=== PATIENT | female | born 2000 | race Caucasian/White ===

== ENCOUNTER 2024-11-26 10:48 | Emergency (ER) | payer MEDICAID, SELFPAY ==
[2024-11-26 11:12] VITALS: BP 112/74; PULSE 61; RESP 18; TEMP 36.7; O2SAT 99
--- NOTE | 2024-11-26 11:23 | ED_ITS ---
HPI - URI/Sore Throat General Chief Complaint: Upper Respiratory Infection Stated Complaint: SORE THROAT History of Present Illness HPI Narrative: 24-year-old female transitioning to male presented for complaint of nausea vomiting and diarrhea For about 1 week. Started with sore throat cough yesterday. Endorses exposure to norovirus. Says the nausea, vomiting, diarrhea are intermittent. Denies Abdominal pain, shortness of breath, wheezing or lethargy. Taking ibuprofen.. Related Data Home Medications ?Medication ?Instructions ?Recorded ?Confirmed ?Last Taken ?Type testosterone cypionate 200 mg/mL mg 11/26/24 Unknown History intramuscular oil Allergies Allergy/AdvReac Type Severity Reaction Status Date / Time No Known Allergies Allergy Verified 11/26/24 11:15 Review of Systems Review of Systems: CONSTITUTIONAL: Denies body aches, fever, chills, or sweats. EYES: Denies visual changes, redness, or discharge. ENT: reports sore throat Denies rhinorrhea, congestion, or otalgia. CARDIOVASCULAR: Denies chest pain, palpitations, or edema. RESPIRATORY: Denies dyspnea. GASTROINTESTINAL: Denies abdominal pain, Reports nausea, vomiting, diarrhea. SKIN: Denies rash, itching, or wounds. MUSCULOSKELETAL: Denies back pain, joint pain, or myalgia. NEUROLOGIC: Denies headache PMFSH Past Medical History Medical History Transgender Exam Narrative: GENERAL: well-appearing, no acute distress. EYES: conjunctivae clear ENT: Mucous membranes moist. TM pearly fontenot with normal light reflex bilaterall y; no tragal tenderness. Oropharynx erythematous without lesions. Tonsils not enlarged and without exudate. No drooling, no hoarseness, no trismus, uvula midline. No tripod positioning, hot potato voice, or soft palate swelling. NECK: Supple. No lymphadenopathy CHEST: Clear to auscultation, breath sounds equal. No respiratory distress, speaks in full sentences. HEART: Regular rate and rhythm. No murmur heard. ABD: soft, flat mildly tender to RUQ, positive Bowel sounds. NEURO: Alert and oriented x3. Course Course Emergency Course: Patient is aware of diagnosis, understands and agrees to treatment plan. Anticipatory guidance given. Patient agrees to follow-up as directed and is aw are of reasons to seek care at the emergency department. Portions of this record may have been created with voice recognition software Level of Care: Express Care Visit Vital Signs Vital signs: Vital Signs Temperature 98.0 F 11/26/24 11:12 Pulse Rate 61 11/26/24 11:12 Respiratory Rate 18 11/26/24 11:12 Blood Pressure 112/74 11/26/24 11:12 Pulse Oximetry 99 11/26/24 11:12 Oxygen Delivery Room Air 11/26/24 11:12 Temperature 98.0 F 11/26/24 11:12 Pulse Rate 61 11/26/24 11:12 Respiratory Rate 18 11/26/24 11:12 Blood Pressure 112/74 11/26/24 11:12 Pulse Oximetry 99 11/26/24 11:12 Oxygen Delivery Room Air 11/26/24 11:12 MDM - URI/Sore Throat MDM Narrative Medical decision making narrative: neg strep result reviewed with pt. Advise supportive treatments for n/v/d Patient is appropriate for outpatient treatment and follow-up. Differential Diagnosis Differential diagnosis: Likely upper respiratory infection, viral infection and pharyngitis Lab Data Labs: Lab Results 11/26/24 Range/Units 11:41 POC Grp A Strep Screen Negative (Negative) Discharge Plan Discharge Clinical Impression: Viral infection Patient Disposition: Home, Self-Care Condition: Stable Instructions: Viral Syndrome (ED) Additional Instructions: Rapid strep swab was negative today You will be notified in a few days if the culture comes back positive for strep, and appropriate antibiotics will be called in at that time. if symptoms are due to a viral illness, it is not treated with antibiotics. Viral symptoms can be present for up to 10-14 days. Tylenol every 8 hours as needed for pain/fever Soft foods, cool liquids, warm tea. Gargle with warm saltwater twice a day. Chloraseptic spray and throat lozenges. Rest and stay hydrated. Stay hydrated. Take small sips of fluid containing electrolytes frequently. Clear liquids (broth, jello, tea, sprite, pedialyte), [place] foods (bananas, rice, applesauce, toast, crackers) Avoid fatty, greasy, fried or spicy foods. Limit dairy until symptoms are improved. [id number] Imodium as needed for diarrhea You should go to the hospital if you experience persistent nausea and vomiting that does not resolve and does not allow you to tolerate any food or fluids, fevers, increasing abdominal pain, persistent diarrhea, dizziness, fainting, or for any other concerns. Follow up with primary care provider in 3 days. Patient Language: Mont[place]atian Prescriptions: New ondansetron 4 mg tablet,disintegrating 4 mg PO Q8H PRN (Reason: nausea and vomiting) Qty: 20 0RF No Action testosterone cypionate 200 mg/mL oil Follow-up/Referrals: PHYSICIAN,ESTIMATOR PROJECT MANAGER [Primary Care Provider] - Time of Disposition: 11:54
[2024-11-26 11:44] LABS: EDSTREPNEGPOS1 Negative (Negative)
== END 2024-11-26 12:04 | disposition home or self-care (01) ==
PROVIDERS: Emergency Provider Nurse Practitioner Family
DX: B34.9 Viral infection, unspecified (principal)
CPT/HCPCS: 87081; 87880; 99213; G0463

== ENCOUNTER 2024-12-15 12:52 | Emergency (ER) | payer MEDICAID, SELFPAY ==
[2024-12-15 13:05] VITALS: BP 102/74; PULSE 71; RESP 16; TEMP 36.3; O2SAT 100
--- NOTE | 2024-12-15 13:15 | ED_ITS ---
HPI - URI/Sore Throat General Chief Complaint: Upper Respiratory Infection Stated Complaint: SORE THROAT/COUGH/STREP EXPSOURE Time Seen by Provider: 12/15/24 12:53 Source: patient and RN notes reviewed Mode of arrival: ambulatory Limitations: no limitations History of Present Illness HPI Narrative: Patient presents today with a 2 day history of sore throat, cough, congestion, rhinorrhea. Denies fever or any additional symptoms. Friend has tested positive for strep throat. Currently rates his pain 5/10 and has been taking Tylenol and ibuprofen with some relief. Patient is transgender and goes by Claudio Related Data Home Medications ?Medication ?Instructions ?Recorded ?Confirmed ?Last Taken ?Type testosterone cypionate 200 mg/mL mg 11/26/24 Unknown History intramuscular oil Allergies Allergy/AdvReac Type Severity Reaction Status Date / Time No Known Allergies Allergy Verified 12/15/24 13:18 Review of Systems Review of Systems: CONSTITUTIONAL: Denies body aches, fever, chills, or sweats. EYES: Denies visual changes, redness, or discharge. ENT: + rhinorrhea, congestion, sore CARDIOVASCULAR: Denies chest pain, palpitations, or edema. RESPIRATORY: Denies dyspnea.+ cough GASTROINTESTINAL: Denies abdominal pain, nausea, vomiting, or diarrhea. GENITOURINARY: Denies dysuria or hematuria. SKIN: Denies rash, itching, or wounds. MUSCULOSKELETAL: Denies back pain, joint pain, or myalgia. NEUROLOGIC: Denies headache, numbness, tingling, or weakness. PSYCH: Denies depression or anxiety. [facility] Past Medical History Medical History Transgender Comments At time of signature, I have reviewed and agree with nursing past medical, surgical, social and family history unless otherwise noted. Please see nursing chart for further information. There is no relevant family history pertinent to the presenting complaint Exam Narrative: GENERAL: Well-appearing, well-nourished, and in no acute distress. HEAD: Normocephalic, atraumatic. EYES: EOMI. No redness or drainage. Conjunctivae normal. ENT: Mucous membranes pink and moist. Nares mild congestion with rhinorrhea. TMs normal bilaterally. Throat mildly erythematous without edema or exudate. Uvula midline. NECK: Normal AROM. Supple. No lymphadenopathy. CHEST: No respiratory distress. Clear to auscultation. HEART: Regular rate and rhythm. No murmur appreciated. EXTREMITIES: Normal range of motion. No edema. SKIN: Warm, dry, no rash. Capillary refill normal. Normal skin turgor. NEURO: No focal deficits. Alert and oriented x3. Gait steady. PSYCH: Normal affect. No signs of depression or anxiety. Course Course Level of Care: Express Care Visit Vital Signs Vital signs: Vital Signs Temperature 97.4 F L 12/15/24 13:05 Pulse Rate 71 12/15/24 13:05 Respiratory Rate 16 12/15/24 13:05 Blood Pressure 102/74 12/15/24 13:05 Pulse Oximetry 100 12/15/24 13:05 Temperature 97.4 F L 12/15/24 13:05 Pulse Rate 71 12/15/24 13:05 Respiratory Rate 16 12/15/24 13:05 Blood Pressure 102/74 12/15/24 13:05 Pulse Oximetry 100 12/15/24 13:05 Reviewed MDM - URI/Sore Throat MDM Narrative Medical decision making narrative: Rapid strep negative. Symptoms likely viral in etiology. Discussed [id number] medication use and duration of illness. No prescription medic ations indicated at this time. Anticipatory guidance given. Differential Diagnosis Differential diagnosis: Likely upper respiratory infection, viral infection, pharyngitis and other (Strep throat) Lab Data Attestation: I reviewed the patient's lab results. Lab results narrative: Rapid strep negative Critical Care Time Critical Care Time Critical Care Time: No Discharge Plan Discharge Clinical Impression: Upper respiratory infection Qualifiers: URI type: unspecified URI Qualified Code(s): J06.9 - Acute upper respiratory infection, unspecified Patient Disposition: Home, Self-Care Condition: Stable Instructions: Upper Respiratory Infection (DC) Additional Instructions: Your rapid strep swab was negative today at [facility]. You will be notified in a few days if the culture comes back positive for strep, and appropriate antibiotics will be called in for you at that time. Your symptoms are likely due to a viral illness, which is not treated with antibiotics. Viral symptoms can be present for up to 7-10 days. Take Tylenol or ibuprofen for fever or pain. Rest and stay hydrated. Follow up with your PCP in 7 days if symptoms are not improving. Go to the ER immediately if you have any difficulty breathing or swallowing. Patient Language: Italian Prescriptions: No Action testosterone cypionate 200 mg/mL oil ondansetron 4 mg tablet,disintegrating 4 mg PO Q8H PRN (Reason: nausea and vomiting) Qty: 20 0RF Follow-up/Referrals: PHYSICIAN,PRODUCT SAFETY OFFICER [Primary Care Provider] - Time of Disposition: 13:19
[2024-12-15 13:22] LABS: EDSTREPNEGPOS1 Negative (Negative)
== END 2024-12-15 13:22 | disposition home or self-care (01) ==
PROVIDERS: Emergency Provider Nurse Practitioner
DX: J06.9 Acute upper respiratory infection, unspecified (principal); F64.0 Transsexualism
CPT/HCPCS: 87081; 87880; 99213; G0463

== ENCOUNTER 2025-03-31 18:17 | Emergency (ER) | payer OTHER, MEDICAID, SELFPAY ==
--- NOTE | ~2025-03-31 | XR_ITS ---
3 VIEWS LUMBAR SPINE Ordering provider: Neftali Mathis APRN History: . fall yesterday, low back pain . Comparison: None. FINDINGS: VERTEBRAL BODIES: No visible fracture or subluxation. 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 Possible Spondylolysis at the level of S1-S2. DISK SPACES: Narrowing of the disc L5-S1. SOFT TISSUES: Normal. IMPRESSION: No acute osseous abnormality lumbar spine. Degenerative disc disease at the level of L5-S1. Possible Spondylolysis at the level of S1-S2. Reviewed, dictated and finalized at location A.
[2025-03-31 18:23] VITALS: BP 113/71; PULSE 83; RESP 18; TEMP 36.8; O2SAT 100
--- NOTE | 2025-03-31 18:45 | ED.BACK ---
HPI - Back Pain/Injury General Chief Complaint: Back Pain/Injury Stated Complaint: Lower Back Pain Time Seen by Provider: 03/31/25 18:30 Source: patient and RN notes reviewed Mode of arrival: ambulatory Limitations: no limitations History of Present Illness HPI Narrative: 25-year-old male presents Express Care complaining of low back pain since yesterday. Patient was working which actually fell the back of her truck. Patient says her truck only since about foot off the ground and when she fell she landed on her back. Patient denies any in her head, loss consciousness, neck pain, upper back pain. Patient reports low back pain throughout her lower back. Patient denies any numbness or tingling, shooting pains, loss of bowel or bladder function, saddle anesthesia, leg weakness, or any other symptoms. Patient denies any chance of being . Related Data Home Medications ?Medication ?Instructions ?Recorded ?Confirmed ?Last Taken ?Type testosterone cypionate 200 mg/mL 200 mg subcut WEEKLY 11/26/24 03/31/25 Unknown History intramuscular oil Allergies Allergy/AdvReac Type Severity Reaction Status Date / Time No Known Allergies Allergy Verified 03/31/25 18:27 Review of Systems Review of Systems: CONSTITUTIONAL: Denies fever, chills, or sweats. EYES: Denies visual changes, redness, or discharge. ENT: Denies rhinorrhea, congestion, sore throat, or otalgia. CARDIOVASCULAR: Denies chest pain, palpitations, or edema. RESPIRATORY: Denies cough or dyspnea. GASTROINTESTINAL: Denies abdominal pain, nausea, vomiting, or diarrhea. GENITOURINARY: Denies dysuria or hematuria. SKIN: Denies rash or itching. MUSCULOSKELETAL: Positive for back pain, negative for joint pain, or myalgia. NEUROLOGIC: Denies headache, numbness, saddle anesthesia, loss of bowel or bladder function, or weakness. PSYCHIATRIC: Denies anxiety or depression. All other systems reviewed are negative, except as documented in HPI. PMFSH Past Medical History Medical History Transgender Comments At the time of my signature, I reviewed and agree with the nursing past medical, surgical, social, and family history. There is no relevant family history pertinent to the patient complaint. Exam Narrative: GENERAL: This is a well-nourished, well-developed adult, in no apparent distress. They are non ill-appearing, nontoxic appearing. HEAD: normocephalic, atraumatic. EYES: Sclera clear/white. Conjunctiva normal. Vision is grossly intact. Extraocular movements intact EARS: External ears normal, Hearing grossly intact. NOSE: External nose normal THROAT: Mucous membranes moist, NECK: Neck supple, non-tender without lymphadenopathy, masses or thyromegaly. No cervical point tenderness, crepitus, step-offs, or midline tenderness. CARDIOVASCULAR: Regular rate and rhythm RESPIRATORY: Respiratory rate normal, respiratory effort nonlabored, no respiratory distress SKIN: warm, Dry, intact with no suspicious lesions or rash, good texture and turgor. NEURO: awake, alert, and oriented to person, place and time. There were no obvious focal neurologic abnormalities. EXTREMITIES: No joint tenderness, effusion, or edema noted. BACK: No thoracic or lumbar point tenderness, no crepitus, step-offs. Tenderness to palpation throughout the lower back. No bruising, swelling, redness. No CVA tenderness. Course Course Emergency Course: Portions of this record may have been created with voice recognition software Level of Care: Express Care Visit Vital Signs Vital signs: Vital Signs Temperature 98.2 F 03/31/25 18:23 Pulse Rate 83 03/31/25 18:23 Respiratory Rate 18 03/31/25 18:23 Blood Pressure 113/71 03/31/25 18:23 Pulse Oximetry 100 03/31/25 18:23 Temperature 98.2 F 03/31/25 18:23 Pulse Rate 83 03/31/25 18:23 Respiratory Rate 18 03/31/25 18:23 Blood Pressure 113/71 03/31/25 18:23 Pulse Oximetry 100 03/31/25 18:23 Reviewed MDM - Back Pain/Injury [facility] Narrative Medical decision making narrative: X-ray lumbar spine shows no evidence of acute fracture findings. Incidental finding of possible degenerative disc disease and possible spondylosis of the low back. Likely patient has a lumbar strain from her fall. Discussed physical exam findings. Will prescribe muscle relaxers as needed for muscle spasms. Advised supportive measures and signs/symptoms to go to the ER. Pt is appropriate for outpt treatment and f/u. Differential Diagnosis Differential diagnosis: Likely lumbar radiculopathy, sciatica and strain of lumbar region Imaging Data Radiologist's impression: ITS Impressions Lumbar Spine X-Ray 03/31/25 18:51 IMPRESSION: No acute osseous abnormality lumbar spine. Degenerative disc disease at the level of L5-S1. Possible Spondylolysis at the level of S1-S2. Critical Care Time Critical Care Time Critical Care Time: No Discharge Plan Discharge Clinical Impression: Injury of lower back Qualifiers: Encounter type: initial encounter Qualified Code(s): S39.92XA - Unspecified injury of lower back, initial encounter Patient Disposition: Home Condition: Stable Instructions: Acute Low Back Pain (ED), Lower Back Exercises (ED) Additional Instructions: X-ray of your lower back was negative for any fractures or acute findings. It did show that you may has some degenerative disc disease and spondylosis your lower back. Please follow-up with your PCP about these findings. Take the muscle relaxer as directed. Do not drive or operate heavy machine, or work while taking the medication as it can make you drowsy. You may use [id number] lidocaine patches as needed for pain. You may take Tylenol or ibuprofen as needed for pain Please follow-up with your primary care provider if pain persist Rest. Avoid pushing, pulling, lifting --running or excessive walking-- or anything that worsens the symptoms You may try stretching your lower back or doing spinal decompression to help with symptoms. Go to the emergency department if you develop any numbness or tingling to your groin, weakness in your legs, or any loss of bowel or bladder function. Patient Language: Sierra Leonean Prescriptions: New methocarbamol 750 mg tablet 750 mg PO TID PRN (Reason: muscle spasms) Qty: 12 0RF No Action testosterone cypionate 200 mg/mL oil 200 mg subcut WEEKLY Follow-up/Referrals: PHYSICIAN,SANITATION WORKER HOSING MACHINERY [Primary Care Provider] - Stand Alone Forms: Work/School Release IP Time of Disposition: 19:01
== END 2025-03-31 19:05 | disposition home or self-care (01) ==
DX: S39.92XA Unspecified injury of lower back, initial encounter (principal); W17.89XA Other fall from one level to another, initial encounter; F64.0 Transsexualism
CPT/HCPCS: 72100; 99213; G0463

== ENCOUNTER 2025-06-07 15:47 | Emergency (ER) | payer OTHER, MEDICAID, SELFPAY ==
[2025-06-07 15:58] VITALS: BP 102/67; PULSE 71; RESP 16; TEMP 36.7; O2SAT 100
--- NOTE | 2025-06-07 16:10 | ED.URI ---
HPI - URI/Sore Throat General Chief Complaint: Upper Respiratory Infection Stated Complaint: Strep Symptoms Time Seen by Provider: 06/07/25 16:00 Source: patient and RN notes reviewed Mode of arrival: ambulatory Limitations: no limitations History of Present Illness HPI Narrative: 25-year-old transgendered male presents to the [facility] complaining of upper respiratory symptoms for last 2 days. Patient reports cough, congestion, runny nose, sore throat, body aches and chills. Patient denies any fevers, earache, nausea, vomiting, diarrhea chest pain, difficulty breathing. Patient denies any significant past medical history. Patient has been taking Motrin help with the pain. Patient says her child recently was tested positive for strep. Related Data Home Medications ?Medication ?Instructions ?Recorded ?Confirmed ?Last Taken ?Type testosterone cypionate 200 mg/mL 200 mg subcut WEEKLY 11/26/24 03/31/25 Unknown History intramuscular oil Allergies Allergy/AdvReac Type Severity Reaction Status Date / Time No Known Allergies Allergy Verified 06/07/25 15:55 Review of Systems Review of Systems: CONSTITUTIONAL: Denies fever, chills, body aches, or sweats. EYES: Denies visual changes, redness, or discharge. ENT: Positive for rhinorrhea, congestion, sore throat. Negative for otalgia. CARDIOVASCULAR: Denies chest pain, palpitations, or edema. RESPIRATORY: Positive for cough. Negative for dyspnea or wheezing. GASTROINTESTINAL: Denies abdominal pain, nausea, vomiting, or diarrhea. GENITOURINARY: Denies dysuria or hematuria. SKIN: Denies rash or itching. MUSCULOSKELETAL: Denies back pain, joint pain, or myalgia. NEUROLOGIC: Denies headache, numbness, or weakness. PSYCHIATRIC: Denies anxiety or depression. All other systems reviewed are negative, except as documented in HPI. [facility] Past Medical History Medical History Transgender Comments At the time of my signature, I reviewed and agree with the nursing past medical, surgical, social, and family history. There is no relevant family history pertinent to the patient complaint. Exam Narrative: GENERAL: This is a well-nourished, well-developed adult, in no apparent distress. They are non ill-appearing, nontoxic appearing. HEAD: normocephalic, atraumatic. EYES: Sclera clear/white. Vision is grossly intact. Conjunctiva normal bilaterally. Extraocular movements intact. EARS: External ears normal, auditory canals clear and without drainage, TMs without erythema or perforation. Hearing grossly intact. NOSE: External nose normal with no obvious nasal discharge, nasal turbinates erythematous, no rhinorrhea. THROAT: Mucous membranes moist, posterior pharynx erythematous without exudate. Uvula is midline. Postnasal drip present. NECK: Neck supple, non-tender without lymphadenopathy, masses or thyromegaly. CARDIOVASCULAR: Regular rate and rhythm without murmurs, gallops, or rubs. RESPIRATORY: Clear to auscultation. Breath sounds equal bilaterally. No wheezes, rales, or rhonchi. SKIN: warm, Dry, intact with no suspicious lesions or rash, good texture and turgor. NEURO: awake, alert, and oriented to person, place and time. There were no obvious focal neurologic abnormalities. EXTREMITIES: No joint tenderness, effusion, or edema noted. BACK: Nontender without deformity. Course Course Emergency Course: Portions of this record may have been created with voice recognition software Level of Care: Express Care Visit Vital Signs Vital signs: Vital Signs Temperature 98.1 F 06/07/25 15:58 Pulse Rate 71 06/07/25 15:58 Respiratory Rate 16 06/07/25 15:58 Blood Pressure 102/67 06/07/25 15:58 Pulse Oximetry 100 06/07/25 15:58 Temperature 98.1 F 06/07/25 15:58 Pulse Rate 71 06/07/25 15:58 Respiratory Rate 16 06/07/25 15:58 Blood Pressure 102/67 06/07/25 15:58 Pulse Oximetry 100 06/07/25 15:58 MDM - URI/Sore Throat MDM Narrative Medical decision making narrative: Rapid strep negative. Throat culture is pending. Symptoms are considered as with a pharyngitis. Likely has a viral upper respiratory infection. Recommend supportive therapy. Discussed physical exam findings. Advised supportive measures and signs/symptoms to go to the ER. Pt is appropriate for outpt treatment and f/u. Differential Diagnosis Differential diagnosis: Likely upper respiratory infection, sinusitis, viral infection and pharyngitis Lab Data Attestation: I reviewed the patient's lab results. Discharge Plan Discharge Clinical Impression: Upper respiratory infection Qualifiers: URI type: unspecified viral URI Qualified Code(s): J06.9 - Acute upper respiratory infection, unspecified Patient Disposition: Home Condition: Stable Instructions: Upper Respiratory Infection (ED) Additional Instructions: Your rapid strep swab was negative today at [facility]. You will be notified in a few days if the culture comes back positive for strep, and appropriate antibiotics will be called in for you at that time. Your symptoms are likely due to a viral illness, which is not treated with antibiotics. Viral symptoms can be present for up to 7-10 days. Take Tylenol or ibuprofen as needed for fever or pain. Follow the instructions on the bottle. If you take DayQuil or NyQuil do not take any Tylenol as it artery contains Tylenol. Rest and stay hydrated. Follow up with your PCP in 5-7 days if symptoms are not improving. Go to the ER immediately if you develop difficulty breathing or swallowing Patient Language: Vietnamese Prescriptions: No Action testosterone cypionate 200 mg/mL oil 200 mg subcut WEEKLY methocarbamol 750 mg tablet 750 mg PO TID PRN (Reason: muscle spasms) Qty: 12 0RF Follow-up/Referrals: PHYSICIAN,EDUCATION ASSISTANT [Primary Care Provider, Internal Medicine] Time of Disposition: 16:10
[2025-06-07 16:11] LABS: EDSTREPNEGPOS1 Negative (Negative)
== END 2025-06-07 16:12 | disposition home or self-care (01) ==
DX: J02.0 Streptococcal pharyngitis (principal); F64.0 Transsexualism
CPT/HCPCS: 87081; 87880; 99213; G0463

== ENCOUNTER 2025-08-24 15:56 | Emergency (ER) | payer OTHER, SELFPAY ==
--- NOTE | 2025-08-24 15:59 | ED_ITS ---
HPI - URI/Sore Throat General Chief Complaint: Upper Respiratory Infection Stated Complaint: COUGH/SORE THROAT/HEAVY CHEST Time Seen by Provider: 08/24/25 15:58 Source: patient Mode of arrival: ambulatory Limitations: no limitations History of Present Illness HPI Narrative: Claudio is a 25 year old transgender male presenting to the clinic today with c/o cough, sinus congestion, sinus pressure, chest heaviness, and sore throat for 2 weeks. He reports he is coughing up green phlegm and blowing out green nasal drainage. History of asthma. He vapes nicotine. Has taken DayQuil, Advil, and Sudafed. Related Data Allergies Allergy/AdvReac Type Severity Reaction Status Date / Time Opioids - Morphine Analogues Allergy Intermediate Rash Verified 08/24/25 16:09 Penicillins Allergy Intermediate Hives Verified 08/24/25 16:09 Review of Systems Review of Systems: Pertinent positives per HPI. Patient denies any fever, chills, rash, visual changes, dizziness, shortness of breath, chest pain, palpitations, nausea, vomiting, diarrhea, constipation, abdominal pain, or any urinary issues. [facility] Past Medical History Medical History Transgender Comments At the time of my signature, I reviewed and agree with the nursing past medical, surgical, social, and family history. There is no relevant family history pertinent to the patient complaint. Exam Narrative: General: Well-developed, well nourished, in no apparent distress Head: Normocephalic, atraumatic Eyes: Pupils equally round and reactive to light bilaterally, EOM intact, sclera and conjunctive clear, no discharge, lids normal Ears: TMs intact and congested, ear canals clear, no drainage, grossly hearing normal. Nose: Nares patent, green nasal discharge, moderate inflammation, maxillary and frontal sinus tenderness. Mouth: Oral pharynx without lesions or masses, good dentition, MMM. Neck: Supple, trachea midline, no enlargement of anterior or posterior cervical nodes, no thyroid masses or goiter palpable. Cardio: Regular rate and rhythm, s1 and s2 normal, no murmur appreciated. Resp: Diminished in the bases otherwise clear, no rhonchi, rales, wheezing or rubs Course Course Level of Care: Express Care Visit Vital Signs Vital signs: Vital Signs Temperature 36.7 C 08/24/25 16:12 Pulse Rate 135 H 08/24/25 16:12 Respiratory Rate 16 08/24/25 16:12 Blood Pressure 118/73 08/24/25 16:12 Pulse Oximetry 100 08/24/25 16:12 Temperature 36.7 C 08/24/25 16:12 Pulse Rate 135 H 08/24/25 16:12 Respiratory Rate 16 08/24/25 16:12 Blood Pressure 118/73 08/24/25 16:12 Pulse Oximetry 100 08/24/25 16:12 MDM MDM Narrative Medical decision making narrative: At the time of visit patient is resting comfortably on the exam table. Patient appears to be nontoxic. C/o cough, sinus congestion, sinus pressure, chest heaviness, and sore throat for 2 weeks. He reports he is coughing up green phlegm and blowing out green nasal drainage. History of asthma. He vapes nicotine. Has taken DayQuil, Advil, and Sudafed. On exam patient has bilateral TMs intact and congested, green nasal drainage, moderate inflammation of the anterior turbinates, maxillary and frontal sinus tenderness, lung sounds diminished in the bases otherwise clear, heart rates regular rate and rhythm. Vital signs reviewed-patient is tachycardic with heart rate of 135 likely due to taking Sudafed. Plan: I suspect patient has sinusitis/bronchitis. Prescription for albuterol inhaler and doxycycline was sent to the pharmacy as patient has allergies to penicillins.. Supportive measures were discussed with the patient and they voiced understanding discharge instructions and agrees to treatment plan. Return precautions reviewed Differential Diagnosis Differential Diagnosis: URI, pharyngitis, viral syndrome, COVID, influenza, strep, otitis media, pneumonia Discharge Plan Discharge Clinical Impression: Sinobronchitis Patient Disposition: Home Condition: Stable Instructions: Antibiotic Form, Sinusitis (ED), Acute Bronchitis (ED) Additional Instructions: Take prescription medications only as prescribed-albuterol inhaler and doxycycline Increase fluids and stay well hydrated May take Tylenol or motrin as directed on bottle for pain/fever May use Flonase 1 spray in each nare daily May take OTC antihistamines such as Zyrtec or Claritin daily as directed on bottle May apply Vicks vapor rub to chest to open sinuses Sinus rinses for congestion Cepacol spray, cough drops, throat lozenges, warm tea with honey/lemon, gargle salt water to soothe throat BRAT diet for diarrhea Clear liquids x 24 hours then advance as tolerated for nausea/vomiting Go to the ED if you develop a worsening in your condition- high fever not controlled by Tylenol or Motrin, dehydration, weakness, lethargy, shortness of breath, or chest pain. Follow up with your PCP in 3-5 days if symptoms persist. Patient Language: Persian Prescriptions: New doxycycline hyclate 100 mg capsule 100 mg PO BID 7 Days Qty: 14 0RF albuterol sulfate 90 mcg/actuation HFA aerosol inhaler 2 puff inhalation Q4-6H PRN (Reason: shortness of breath or wheezing) 30 Days Qty: 8.5 0RF Follow-up/Referrals: UNKNOWN,DOCTOR [Non-Staff] Time of Disposition: 16:22 Quality NIHSS Nursing Documentation ED NIHSS nursing documentation: reviewed/agree
[2025-08-24 16:12] VITALS: BP 118/73; PULSE 135; RESP 16; TEMP 36.7; O2SAT 100
== END 2025-08-24 16:30 | disposition home or self-care (01) ==
PROVIDERS: Emergency Provider Nurse Practitioner Family
DX: J32.9 Chronic sinusitis, unspecified (principal); J40 Bronchitis, not specified as acute or chronic; F17.290 Nicotine dependence, other tobacco product, uncomplicated; J45.909 Unspecified asthma, uncomplicated; F64.0 Transsexualism
CPT/HCPCS: 99213; G0463